=== PATIENT | female | born 1970 | race Caucasian/White ===

== ENCOUNTER 2020-07-15 11:08 | Outpatient (CLI) | payer BC ==
--- NOTE | 2020-07-15 11:39 | RAD ---
2 view chest: [07/15/2020] Comparison:None available HISTORY: Left mid/upper back pain FINDINGS: There is mild prominence of the cardiac silhouette. No pneumothorax or pleural fluid is see n and there is no focal consolidation or alveolar edema. IMPRESSION: No focal consolidation or alveolar edema.
== END 2020-07-15 11:09 | disposition home or self-care (01) ==
LOC: RAD 11:08
PROVIDERS: ATTEND Internal Medicine
DX: M54.6 Pain in thoracic spine (principal)
CPT/HCPCS: 71046